=== PATIENT | female | born 1980 | race Caucasian/White ===

== ENCOUNTER 2021-11-09 22:13 | Emergency (ER) | payer MEDICAID ==
[~2021-11-09] VITALS: Ht 167.6 cm; Wt 90.0 kg
[2021-11-09] MEDS ORDERED: DIPHENHYDRAMINE 50MG/ML VIAL IM STA (23:03)
[2021-11-09] MEDS ORDERED: HALOPERIDOL LACTATE 5MG/ML VIAL IM STA (23:03)
[2021-11-09] MEDS ORDERED: MIDAZOLAM HCL 2 MG/2 ML VIAL IM ONE (23:15)
[2021-11-09 23:43] LABS: BASOPHILS % 0.5 % (0.0-2.0); EOSINOPHILS % 0.3 % (0.0-5.0); HEMATOCRIT. 32.5 % (36.0-48.0); HEMOGLOBIN. 10.6 g/dL (12.0-16.0); LYMPHOCYTES % 40.9 % (20.0-50.0); MEAN CORPUSCULAR HEMOGLOBIN 29.3 pg (28.0-32.0); MEAN CORPUSCULAR VOLUME 89.4 fL (81.0-99.0); MEAN PLATELET VOLUME 7.3 fl (7.4-10.4); MONOCYTES % 5.8 % (2.0-8.0); NEUTROPHILS % 52.5 % (40.0-76.0); PLATELET 302 x1000/uL (130-400); RED BLOOD CELL COUNT 3.63 mill/uL (4.2-5.4); RED CELL DISTRIBUTION WIDTH 13.9 % (11.6-14.6)
[2021-11-09 23:49] LABS: CHLORIDE 106 mEq/L (98-107)
[2021-11-09 23:57] LABS: ETHANOL BLOOD 201 mg/dL; HCG SCREEN NEGATIVE
[2021-11-10] MEDS ORDERED: POTASSIUM CHLORIDE 20MEQ TABLET SR PO ONE (05:45)
[2021-11-10 06:00] VITALS: BP 111/60
== END 2021-11-10 07:36 | disposition home or self-care (01) ==
LOC: ER 22:13
DX: F10.229 Alcohol dependence with intoxication, unspecified (principal); U07.1 COVID-19; Y90.7 Blood alcohol level of 200-239 mg/100 ml
CPT/HCPCS: 36415; 80053; 80307; 80320; 80329; 84703; 85025; 96372; 99284; C9803; J1200; J1630; J2250; U0003; U0005; G0480